=== PATIENT | female | born 1995 | race Caucasian/White ===

== ENCOUNTER 2016-04-19 18:28 | Emergency (ER) | payer SELFPAY ==
--- NOTE | 2016-04-19 19:09 | Emergency Department Record ---
History of Present Illness - General Chief Complaint: Dizziness Stated Complaint: DIZZY Time Seen by Provider: 04/19/16 19:01 Source: Patient Mode of Arrival: Ambulatory Limitations: No limitations - History of Present Illness Initial Comments: 21 yo female presents with dizziness, nausea, weakness and shakiness. She has had the symptoms for 3 days. She admits to frequent alcohol consumption every other day. She drinks beer and liquor. No vomiting. No fever. No diarrhea. She is on over the counter supplements. No fever. No abnormal menstrual cycles. The patient has a job. She is in need of a new PCP and help with anxiety and alcohol use. MD Complaint: Dizziness Onset/Timin -: Days(s) Timing: Awoke with symptoms Description: Lightheadedness, Off-balance, "Room spinning" History of Same: Yes History of Trauma: No Severity: Mild Improves With: Remaining still Worsens With: Movement, Position, Exertion Associated Symptoms: Other - [place] Coma Scale Eye Response: (4) Open spontaneously Motor Response: (6) Obeys commands Verbal Response: (5) Oriented [place] Total: 15 - Related Data Home Medications Medication Instructions Recorded Confirmed Last Taken Ginkgo Biloba Margate Extract [Ginkgo] 60 mg PO DAILY 04/19/16 04/19/16 04/19/16 [place]-3 Fatty Acids/Fish Oil [Fish 1 each PO 04/19/16 04/19/16 Oil 1,000 mg Softgel] [place]'s Wort 150 mg PO DAILY 04/19/16 04/19/16 04/19/16 Valerian Root 100 mg PO DAILY 04/19/16 04/19/16 04/19/16 Previous Rx's Medication Instructions Recorded Meclizine HCl [Antivert] 25 mg PO Q8H #5 tablet 04/19/16 Ondansetron HCl [Zofran] 4 mg PO Q8H #5 tablet 04/19/16 Allergies Allergy/AdvReac Type Severity Reaction Status Date / Time No Known Drug Allergies Allergy Verified 04/19/16 18:58 Travel Screening - Travel/Exposure Within Last 30 Days Have you traveled within the last 30 days?: No - Travel/Exposure Within Last Year Have you traveled outside the [place] in the last year?: No - Additonal Travel Details Have you been exposed to anyone with a communicable illness?: No - Travel Symptoms Symptom Screening: None Review of Systems Constitutional: Denies: Chills, Fever, Malaise, Night sweats, Weakness Eyes: Denies: Eye discharge, Eye pain, Photophobia ENT: Denies: Congestion, Ear pain, Epistaxis, Throat pain Respiratory: Denies: Cough, Dyspnea, Hemoptysis, Stridor, Wheezes Cardiovascular: Denies: Chest pain, Palpitations, Syncope Endocrine: Denies: Fatigue Gastrointestinal: Reports: Nausea. Denies: Abdominal pain, Diarrhea, Hematemesis, Hematochezia, Vomiting Genitourinary: Denies: Dysuria, Hematuria Musculoskeletal: Denies: Arthralgia, Back pain, Joint swelling, Myalgia, Neck pain Skin: Denies: Change in color, Rash Psychiatric: Denies: Anxiety Hematological/Lymphatic: Denies: Blood Clots, Easy bleeding, Easy bruising, Swollen glands Past Medical History - SOCIAL HISTORY Smoking Status: Light tobacco smoker (<10/day) Alcohol Use: Heavy Drug Use Detail:: Other - RESPIRATORY Hx Respiratory Disorders: No - CARDIOVASCULAR Hx Cardio Disorders: No - NEURO Hx Neuro Disorders: Yes Hx Dizziness: Yes - GI Hx GI Disorders: No - Hx Genitourinary Disorders: No - ENDOCRINE Hx Endocrine Disorders: No Hx Diabetes: No Hx Thyroid Disease: No - MUSCULOSKELETAL Hx Musculoskeletal Disorders: No - PSYCH Hx Psych Problems: No - HEMATOLOGY/ONCOLOGY Hx Hematology/Oncology Disorders: No Family Medical History Any Significant Family History?: Yes Hx HTN: Mother Physical Exam - General General Appearance: Alert, Oriented x3, Cooperative, No acute distress Limitations: No limitations - Head Head exam: Atraumatic, Normocephalic, Normal inspection - Eye Eye exam: Normal appearance, PERRL, EOMI. negative: Conjunctival injection, Nystagmus, Periorbital swelling, Scleral icterus - ENT ENT exam: Normal exam, Mucous membranes moist, Normal external ear exam, Normal orophraynx, TM's normal bilaterally Ear exam: Normal external inspection. negative: External canal tenderness Nasal Exam: Normal inspection. negative: Discharge, Sinus tenderness Mouth exam: Normal external inspection, Tongue normal Teeth exam: Normal inspection. negative: Dental caries Throat exam: Normal inspection. negative: Tonsillar erythema, Tonsillar exudate - Neck Neck exam: Normal inspection, Full ROM. negative: Tenderness, Thyromegaly - Respiratory Respiratory exam: Normal lung sounds bilaterally. negative: Respiratory distress - Cardiovascular Cardiovascular Exam: Normal rhythm, Normal heart sounds, Tachycardia - GI/Abdominal GI/Abdominal exam: Soft. negative: Guarding, Tenderness - Rectal Rectal exam: Deferred - exam: Deferred - Extremities Extremities exam: Normal inspection, Full ROM, Normal capillary refill. negative: Tenderness - Back Back exam: Reports: Normal inspection, Full ROM. Denies: Muscle spasm, Rash noted, Tenderness - Neurological Neurological exam: Alert, Normal gait, Oriented X3 - Psychiatric Psychiatric exam: Anxious - Skin Skin exam: Dry, Intact, Normal color, Warm Course - Reevaluation(s) Reevaluation #1: The patient reports improvement of nausea that is resolved No acute changes of the CBC 04/19/16 19:56 Reevaluation #2: No acute labs changes The patient vitals much improved She will be referred for social work and a new PCP at [facility] 04/19/16 20:16 Medical Decision Making - Lab Data Result diagrams: 04/19/16 19:30 04/19/16 19:30 Disposition Disposition: Discharge Clinical Impression: Dizziness, Alcohol abuse, Decreased thyroid stimulating hormone (TSH) level Disposition: Home, Self-Care Condition: (1) Good Instructions: Abuse of Alcohol (ED), Hyperthyroidism (ED) Additional Instructions: Call the Family Practice Office for close follow up You are being referred to our Social Workers as well for additional support services Your Thyroid test shows you may have an active or overactive thyroid. This can be retested by your new family doctor. Prescriptions: Meclizine HCl [Antivert] 25 mg PO Q8H #5 tablet Ondansetron HCl [Zofran] 4 mg PO Q8H #5 tablet Referrals: Trinidad Palomares [email or web address] [Senior Engineering Specialist] - URBAN JEAN M.D. [MEDICAL DOCTOR] - Forms: Patient Portal Access Time of Disposition: 20:14
[2016-04-19 19:36] LABS: BASO % 0.8 % (0-6); EOS % 1.6 % (0-6); GRAN % 60.8 % (47-80); HEMOGLOBIN 15.4 gm/dl (11.6-16.0); LYMPH % 28.8 % (16-45); MEAN CELL VOLUME 92.8 fl (81-97); MEAN CORPUSCULAR HEMOGLOBIN 31.8 pg (27-33); MEAN CORPUSCULAR HGB CONC 34.2 g/dl (32-36); MEAN PLATELET VOLUME 10.4 fl (7.4-10.4); PLATELET COUNT 250 K/uL (130-400); RED BLOOD COUNT 4.85 M/uL (3.80-5.40); RED CELL DISTRIBUTION WIDTH 13.1 % (11.5-14.5); WHITE BLOOD COUNT W/O DIFF 6.4 K/uL (4.2-12.2)
[2016-04-19 19:48] LABS: ALB/GLOB RATIO 2.1 (1.1-1.8); ALKALINE PHOSPHATASE 62 U/L (38-126); ALT/SGPT 39 U/L (9-52); ANION GAP 12.3 (7-16); AST/SGOT 21 U/L (14-36); BILIRUBIN,TOTAL 0.54 mg/dL (0.2-1.3); BLOOD UREA NITROGEN 16 mg/dL (7-17); CARBON DIOXIDE 23.7 mmol/L (22-30); CREATININE 0.6 mg/dL (0.52-1.04); EST GLOMERULAR FILTRATION RATE > 60 ml/min; GLUCOSE,RANDOM 103 mg/dL (70-110); LIPASE 82 U/L (23-300); TOTAL PROTEIN 7.4 gm/dL (6.3-8.2)
[2016-04-19 19:53] LABS: URINE APPEARANCE CLEAR; URINE BILIRUBIN NEGATIVE (NEGATIVE); URINE BLOOD NEGATIVE (NEGATIVE); URINE COLOR YELLOW; URINE GLUCOSE (UA) NEGATIVE (NEGATIVE); URINE KETONE NEGATIVE (NEGATIVE); URINE LEUKOCYTE ESTERASE NEGATIVE (NEGATIVE); URINE NITRITE NEGATIVE (NEGATIVE); URINE PROTEIN NEGATIVE (NEGATIVE); URINE UROBILINOGEN 0.2 E.U./dL (0.20 - 1.00)
[2016-04-19] MEDS: 0.9 % SODIUM CHLORIDE 1,000 ML BAG IV ONE (19:53)
[2016-04-19] MEDS: MECLIZINE 25 MG TABLET PO ONE (19:57)
[2016-04-19] MEDS: ONDANSETRON HCL IV 4 MG/2 ML VIAL IV ONE (20:22)
[2016-04-19] MEDS: ONDANSETRON 4 MG ODT TABLET SL ONE (20:36)
== END 2016-04-19 20:43 | disposition home or self-care (01) ==
LOC: ER 18:28
DX: R42 Dizziness and giddiness (principal); R94.6 Abnormal results of thyroid function studies; R10.10 Upper abdominal pain, unspecified; Y90.9 Presence of alcohol in blood, level not specified
CPT/HCPCS: 80053; 81003; 81025; 83690; 84443; 85025; 96360; 99284; J7030

== ENCOUNTER 2017-03-01 02:49 | Emergency (ER) | payer SELFPAY ==
--- NOTE | 2017-03-01 03:04 | Emergency Department Record ---
History of Present Illness - General Stated Complaint: DRUNK/LAC ON FINGER Time Seen by Provider: 03/01/17 02:50 Source: Patient, Family (Sister, boyfriend) Mode of Arrival: Ambulatory Limitations: Altered mental status - History of Present Illness Initial Comments: 22 yo female presents to ED for evaluation of an injury to the right middle finger. SO and sister at the bedside report that the patient cut her finger on a broken glass jar at home, and are unsure if the patient may need stitches. Patient is intoxicated and initially non-cooperative on examination. MD Complaint: Injury to:: Right Onset/Timin -: Minutes(s) Other Extremity Injury: Fingers: Right Other Injuries: None Improves With: None Worsens With: None Context: Laceration Associated Symptoms: Denies other symptoms - Related Data Home Medications Medication Instructions Recorded Confirmed Last Taken No Home Med [NO HOME MEDS] 03/01/17 03/01/17 Unknown Allergies Allergy/AdvReac Type Severity Reaction Status Date / Time No Known Drug Allergies Allergy Verified 04/19/16 18:58 Review of Systems ROS unobtainable: Due to mental status, Other (patient is non-cooperative with examination, intoxicated on examination) Past Medical History - SOCIAL HISTORY Smoking Status: Light tobacco smoker (<10/day) Drug Use Detail:: Other - RESPIRATORY Hx Respiratory Disorders: No - CARDIOVASCULAR Hx Cardio Disorders: No - NEURO Hx Neuro Disorders: Yes Hx Dizziness: Yes - GI Hx GI Disorders: No - Hx Genitourinary Disorders: No - ENDOCRINE Hx Endocrine Disorders: No Hx Diabetes: No Hx Thyroid Disease: No - MUSCULOSKELETAL Hx Musculoskeletal Disorders: No - PSYCH Hx Psych Problems: No - HEMATOLOGY/ONCOLOGY Hx Hematology/Oncology Disorders: No Family Medical History Hx HTN: Mother Physical Exam - General General Appearance: Alert, Other (Patient is non-cooperative on examination due to intoxication) Limitations: Altered mental status - Head Head exam: Atraumatic, Normocephalic, Normal inspection Head exam detail: negative: Abrasion, Contusion, Deshpande's sign, General tenderness, Hematoma, Laceration - Eye Eye exam: Normal appearance. negative: Conjunctival injection, Periorbital swelling, Periorbital tenderness, Scleral icterus - ENT Ear exam: negative: Auricular hematoma, Auricular trauma Nasal Exam: negative: Active bleeding, Discharge, Dried blood, Foreign body Mouth exam: negative: Drooling, Laceration, Muffled voice, Tongue elevation - Neck Neck exam: Normal inspection. negative: Meningismus, Tenderness - Respiratory Respiratory exam: Normal lung sounds bilaterally. negative: Rales, Respiratory distress, Rhonchi, Stridor - Cardiovascular Cardiovascular Exam: Regular rate, Normal rhythm, Normal heart sounds - GI/Abdominal GI/Abdominal exam: Soft. negative: Rebound, Rigid, Tenderness - Rectal Rectal exam: Deferred - exam: Deferred - Extremities Extremities exam: Full ROM, Other (Dried blood to the hands on examination, 1.0 cm laceration to the left middle finger medially with no active bleeding present.). negative: Calf tenderness, Pedal edema, Tenderness - Back Back exam: Denies: CVA tenderness (R), CVA tenderness (L) - Neurological Neurological exam: Alert, Other (ataxic gait, clinically intoxicated on examination) - Skin Skin exam: Normal color. negative: Abrasion Type of lesion: negative: abrasion Course - Reevaluation(s) Reevaluation #1: 03/01/17 03:06 Patient is currently non-cooperative with examination, unwilling to have radiographs performed. At this time, evaluation is limited by the patient's cooperation. Will attempt to obtain radiographs to exclude FB. Reevaluation #2: 03/01/17 03:34 Patient initially agreed to have radiographs taken to exclude glass FB in her finger wound, however upon arriving in radiology, became uncooperative again, tech is unable to obtain radiographs at this time. Patient will be brought back to the ED to await further sobriety until she has the capacity to make rational decisions to have radiographs taken to exclude FB and or have her laceration repaired or to refuse treatment. Reevaluation #3: 03/01/17 06:05 Patient reassessed, sleeping currently. Will continue to observe until clinically sober. Reevaluation #4: 03/01/17 06:52 Patient eloped from the ED with her significant other, steady gait on camera with her significant other. Rx for Keflex was given to the patient's sister in the attempt to reduce the chance of infection as the patient has elected not to stay for laceration repair. Disposition Disposition: Other (eloped) Clinical Impression: Alcohol intoxication Qualifiers: Complication of substance-induced condition: uncomplicated Qualified Code(s): F10.920 - Alcohol use, unspecified with intoxication, uncomplicated Finger laceration Qualifiers: Encounter type: initial encounter Finger: middle finger Damage to nail status: without damage Foreign body presence: without foreign body Laterality: left Qualified Code(s): S61.213A - Laceration without foreign body of left middle finger without damage to nail, initial encounter Disposition: Home, Self-Care Condition: (2) Stable Instructions: Alcohol Intoxication (ED) Additional Instructions: Return to ED if your symptoms worsen or if you have any concerns. Suture out in 10-14 days. Follow-up with your family doctor in 1 week as directed. Time of Disposition: 06:55 Quality - Quality Measures Quality Measures: N/A - Blood Pressure Screening Does Patient Have Any of the Following: No Blood Pressure Classification: Hypertensive Reading Systolic Measurement: 110 Diastolic Measurement: 102 Screening for High Blood Pressure: < First Hypertensive BP, F/U Documented > [ [id number]] First Hypertensive Follow-up Interventions: Referral to alternative/primary care provider.
--- NOTE | 2017-03-02 08:29 | RADIOLOGY REPORT ---
EXAM: LEFT MIDDLE FINGER, SINGLE VIEW HISTORY: LACERATION. EVALUATE FOR FOREIGN BODY. TECHNIQUE: A single PA view of the left middle finger was performed. Comparison: None. FINDINGS: There is soft tissue laceration at the level of the middle phalanx. There is no radiopaque foreign body or fracture. IMPRESSION: NO FRACTURE OR FOREIGN BODY. JOB NUMBER: [id number] MTDD
== END 2017-03-01 06:55 | disposition home or self-care (01) ==
LOC: ER 02:49
DX: S61.213A Laceration without foreign body of left middle finger without damage to nail, initial encounter (principal); W25.XXXA Contact with sharp glass, initial encounter; Y92.009 Unspecified place in unspecified non-institutional (private) residence as the place of occurrence of the external cause; F10.920 Alcohol use, unspecified with intoxication, uncomplicated
CPT/HCPCS: 73140; 99283